=== PATIENT | female | born 1960 | race Caucasian/White ===

== ENCOUNTER 2017-10-21 12:44 | Emergency (ER) | payer MEDICAID, OTHER ==
[2017-10-21 12:54] VITALS: BP 138/79; PULSE 76; RESP 20; TEMP 98.1; O2SAT 98
--- NOTE | 2017-10-21 13:53 | ED PDOC ---
HPI: General Adult Time Seen by Provider: 10/21/17 13:23 Chief Complaint (Nursing): Abdominal Pain Additional Complaint(s): 57 y/o F c no PMHx p/w R sided abd pain x 6 days. Pain is RLQ, nonradiating, did not start elsewhere, feels worse when laying down. Denies fever, chills, nausea, vomiting, diarrhea, constipation, vaginal bleeding, dysuria, trauma. LMP 7 years ago. Past Medical History Vital Signs: Last Vital Signs Temp 98.1 F 10/21/17 12:53 Pulse 76 10/21/17 12:53 Resp 20 10/21/17 12:53 BP 138/79 10/21/17 12:53 Pulse Ox 98 10/21/17 13:53 - Family History Family History: States: Unknown Family Hx - Home Medications Home Medications: Ambulatory Orders Medication Instructions Recorded Prednisone 20 mg PO BID #10 tablet 09/04/15 Sulfamethoxazole/Trimethoprim 1 tab PO BID #14 tab 09/04/15 [Bactrim DS 800 mg-160 mg] Ibuprofen [Motrin] 1 tab PO Q6 #30 tab 10/21/17 Polyethylene Glycol 3350 [Miralax] 17 gm PO DAILY #238 gm 10/21/17 - Allergies Allergies/Adverse Reactions: Allergies Allergy/AdvReac Type Severity Reaction Status Date / Time aspirin Allergy RASH Verified 09/04/15 17:00 latex Allergy RASH Verified 10/21/17 12:53 seafood Allergy RASH Uncoded 10/21/17 12:53 Review of Systems ROS Statement: Except As Marked, All Systems Reviewed And Found Negative Constitutional: Negative for: Fever Gastrointestinal: Negative for: Vomiting Physical Exam - Physical Exam Comments: Gen: NAD Head: NC/AT Eyes: PERRL ENT: MMM Neck: Supple Chest: No tenderness CV: Regular rate Lungs: CTA b/l Abd: Soft, tenderness R suprapubic, no tenderness at McBurney's point, no guarding Back: No CVA tenderness Skin: No rash Neuro: Alert, no focal deficit Extremities: No edema - Laboratory Results Result Diagrams: 10/21/17 14:00 10/21/17 14:00 - ECG O2 Sat by Pulse Oximetry: 98 Medical Decision Making Medical Decision Making: Toradol and IVF for pain, check labs and US. FINDINGS: The uterus measures 4.5 x 3.2 x 3.3 centimeters. The endometrium measures 2 millimeters. Multiple fibroids are identified the largest measuring 1.5 centimeters in the anterior fundus. The ovaries have a normal sonographic appearance. There is no free from the pelvis. IMPRESSION: Scattered small leiomyomata. IMPRESSION: 1. The appendix is unremarkable. 2. There is trace free fluid in the pelvis, cannot exclude ovarian cyst rupture Patient feels better. Will discharge home, f/u PMD, return to ED for worsening pain, fever, vomiting, or any other problem. Disposition - Clinical Impression Clinical Impression: Abdominal pain - Patient ED Disposition Is Patient to be Admitted: No - Disposition Disposition: Routine/Home Disposition Time: 18:51 Condition: STABLE Prescriptions: Ibuprofen [Motrin] 1 tab PO Q6 #30 tab Polyethylene Glycol 3350 [Miralax] 17 gm PO DAILY #238 gm Instructions: Ovarian Cysts, Constipation in Adults Forms: [facility] ([place])
[2017-10-21 14:14] LABS: BASO % 1.1 % (0.0-2.0); EOS # 0.1 K/uL (0.0-0.7); EOS % 2.8 % (0.0-4.0); HEMOGLOBIN 12.4 g/dL (12.0-16.0); LYMPH # 1.8 K/uL (1.0-4.3); LYMPH % 42.8 % (20.0-40.0); MEAN CELL VOLUME 95.1 fl (81.0-99.0); MEAN CORPUSCULAR HEMOGLOBIN 31.9 pg (27.0-31.0); MEAN CORPUSCULAR HGB CONC 33.6 g/dL (33.0-37.0); MONO # 0.4 K/uL (0.0-0.8); MONO % 8.6 % (0.0-10.0); NEUT # 1.9 K/uL (1.8-7.0); NEUT % 44.7 % (50.0-75.0); NRBC % 0.1 % (0.0-0.0); RBC 3.88 Mil/uL (3.80-5.20); RED CELL DISTRIBUTION WIDTH 13.3 % (11.5-14.5); WHITE BLOOD COUNT 4.2 K/uL (4.8-10.8)
[2017-10-21 14:17] LABS: SQUAMOUS EPITHIAL < 1 /hpf (0-5); URINE BILIRUBIN NEGATIVE (NEGATIVE); URINE BLOOD NEGATIVE (NEGATIVE); URINE CLARITY CLEAR (Clear); URINE COLOR STRAW (YELLOW); URINE GLUCOSE (UA) NEG (Normal); URINE LEUKOCYTE ESTERASE NEG Leu/uL (Negative); URINE PROTEIN NEGATIVE (NEGATIVE); URINE UROBILINOGEN 0.2-1.0 mg/dL (0.2-1.0)
[2017-10-21 14:27] LABS: ALB/GLOB RATIO 1.3 (1.0-2.1); ALBUMIN 4.2 g/dL (3.5-5.0); ALT/SGPT 33 U/L (9-52); AST/SGOT 33 U/L (14-36); BLOOD UREA NITROGEN 16 mg/dl (7-17); CALCIUM 9.3 mg/dL (8.4-10.2); GFR AFRICAN-AMERICAN > 60; GFR NON-AFRICAN AMERICAN > 60; LIPASE 121 U/L (23-300)
[2017-10-21] MEDS: Sodium Chloride 0.9% 1,000 ML IV SCH ×4 (14:37→17:18)
[2017-10-21 15:41] LABS: HCG,QUALITATIVE URINE NEGATIVE (NEGATIVE)
--- NOTE | 2017-10-21 16:46 | US ---
PROCEDURE: HISTORY: R sided pain, r/o torsion/cyst COMPARISON: TECHNIQUE: FINDINGS: The uterus measures 4.5 x 3.2 x 3.3 centimeters. The endometrium measures 2 millimeters. Multiple fibroids are identified the largest measuring 1.5 centimeters in the anterior fundus. The ovaries have a normal sonographic appearance. There is no free from the pelvis. IMPRESSION: Scattered small leiomyomata.
[2017-10-21] MEDS ORDERED: Iohexol 300 100 ML IJ ONE (16:56)
[2017-10-21] MEDS ORDERED: Sodium Chloride 0.9% 100 ML ONE (16:57)
--- NOTE | 2017-10-22 08:26 | CT ---
PROCEDURE: CT Abdomen and Pelvis with contrast HISTORY: RLQ pain COMPARISON: None. TECHNIQUE: Following the intravenous administration of iodinated contrast material, a CT examination of the abdomen and pelvis performed from the domes of the diaphragms to the symphysis pubis with reformatted datasets provided not only axial but also sagittal and coronal planes. Oral contrast was not administered as per referring physician request. Contrast dose: Omnipaque 300, 98 cc Radiation dose: Total exam DLP = 515.48 mGy-cm. This CT exam was performed using one or more of the following dose reduction techniques: Automated exposure control, adjustment of the mA and/or kV according to patient size, and/or use of iterative reconstruction technique. FINDINGS: LOWER THORAX: Unremarkable. LIVER: A tiny hepatic granuloma seen near the dome laterally to the right with a tiny lucency at the right lobe liver inferolaterally in the periphery, too small to characterize. With the liver otherwise unremarkable appearing. GALLBLADDER AND BILE DUCTS: Gallbladder is contracted. No radiodense cholelithiasis appreciated in the lumen. PANCREAS: Unremarkable. No gross lesion or ductal dilatation. SPLEEN: Unremarkable. ADRENALS: Unremarkable. No mass. KIDNEYS AND URETERS: A small lucency seen the lower pole right kidney, too small to characterize. No hydronephrosis. No definite solid mass. VASCULATURE: Non aneurysmal atherosclerotic abdominal aorta is identified. BOWEL: Unremarkable. No obstruction. No gross mural thickening. APPENDIX: Normal appendix. PERITONEUM: Trace fluid is seen in the cul-de-sac posteriorly and slightly to the right. No free air. LYMPH NODES: Unremarkable. No enlarged lymph nodes. BLADDER: Unremarkable. REPRODUCTIVE: Unremarkable. BONES: No acute fracture. OTHER FINDINGS: None. IMPRESSION: 1. No CT evidence to suggest appendicitis with the appendix appearing normal at the right lower quadrant. No suspicious CT findings the right lower quadrant including the pelvis. 2. Tiny lucency seen the right lobe liver post inferolaterally, too small to characterize with an additional lucency seen at the lower pole right kidney too small to characterize. Tiny hepatic granuloma is identified. 3. Trace fluid seen the cul-de-sac and inferior right extent adnexal compartment of uncertain origin, possibly for reason right adnexal cyst rupture. No adnexal cystic changes are clearly identified at this time.
== END 2017-10-21 19:06 | disposition home or self-care (01) ==
LOC: H.ER 12:44
DX: R10.9 Unspecified abdominal pain (principal); D25.9 Leiomyoma of uterus, unspecified
CPT/HCPCS: 74177; 76830; 80053; 81003; 81025; 83690; 84703; 85025; 87086; 96374; 99283; J1885; J7040; Q9967

== ENCOUNTER 2018-12-05 08:06 | Emergency (ER) | payer MEDICAID ==
[2018-12-05 08:14] VITALS: O2SAT 98; BMI 25.9
--- NOTE | 2018-12-05 08:48 | ED PDOC ---
Lower Extremity Pain/Injury Time Seen by Provider: 12/05/18 08:33 Chief Complaint (Nursing): Lower Extremity Problem/Injury Chief Complaint (Provider): Lower Extremity Problem/Injury History Per: Patient History/Exam Limitations: no limitations Onset/Duration Of Symptoms: Days (x 2) Current Symptoms Are (Timing): Still Present Additional Complaint(s): 58 year old female with no significant medical history presents to the ED for evaluation of left knee pain. Patient reports she has been experiencing "soreness" on the inside of her left knee for about a week. She has tried homeopathic remedies and wrapping it with an [employer] bandage with some relief. However, yesterday she states that she heard a "cork like pop" sound and now has swelling, bruising and mild numbness to the area. She is able to walk on the left leg with assistance from a cane. Patient took 800 mg of Motrin every 8 hours for pain relief. Her last dose was last night. Denies radiation to other areas, trauma and other complaints. PMD: Dr. Binta Bal - Knee Alleviating Factor(s): OTC Pain Medication Past Medical History Reviewed: Historical Data, Nursing Documentation, Vital Signs Vital Signs: Last Vital Signs Temp 97 F L 12/05/18 08:13 Pulse 89 12/05/18 08:13 Resp 18 12/05/18 08:13 BP 124/74 12/05/18 08:13 Pulse Ox 98 12/05/18 08:13 Primary Care Provider: Non [facility] Provider, - Medical History PMH: No Chronic Diseases - Surgical History Surgical History: No Surg Hx - Family History Family History: States: Unknown Family Hx - Social History Alcohol: None Drugs: Denies - Home Medications Home Medications: Ambulatory Orders Medication Instructions Recorded Prednisone 20 mg PO BID #10 tablet 09/04/15 Sulfamethoxazole/Trimethoprim 1 tab PO BID #14 tab 09/04/15 [Bactrim DS 800 mg-160 mg] Ibuprofen [Motrin] 1 tab PO Q6 #30 tab 10/21/17 Polyethylene Glycol 3350 [Miralax] 17 gm PO DAILY #238 gm 10/21/17 Ibuprofen [Motrin Tab] 800 mg PO Q8 #30 tab 12/05/18 - Allergies Allergies/Adverse Reactions: Allergies Allergy/AdvReac Type Severity Reaction Status Date / Time aspirin Allergy RASH Verified 09/04/15 17:00 latex Allergy RASH Verified 10/21/17 12:53 seafood Allergy RASH Uncoded 10/21/17 12:53 Review of Systems ROS Statement: Except As Marked, All Systems Reviewed And Found Negative Musculoskeletal: Positive for: Leg Pain (left knee pain) Skin: Positive for: Bruising (inside of left knee), Other Physical Exam - Reviewed Nursing Documentation Reviewed: Yes Vital Signs Reviewed: Yes - Physical Exam Appears: Positive for: Non-toxic, No Acute Distress Head Exam: Positive for: ATRAUMATIC, NORMAL INSPECTION, NORMOCEPHALIC Skin: Positive for: Normal Color, Warm, Dry Cardiovascular/Chest: Positive for: Regular Rate, Rhythm Respiratory: Positive for: CNT, Normal Breath Sounds Extremity: Positive for: Swelling (to the medial left knee.). Negative for: Deformity, Other (Ivan's test limited due to pain; no palpable fluctuance, warmth, movement to posterior and anterior drawer test, palpable clicking) Neurological/Psych: Positive for: Awake, Alert, Normal Tone, Oriented (x 3). Negative for: Motor/Sensory Deficits - ECG O2 Sat by Pulse Oximetry: 98 (RA) Pulse Ox Interpretation: Normal Medical Decision Making Medical Decision Makin:42 MDM: most likely meniscus vs ligament Left knee x-ray Tylenol for pain 09:40 X-ray shows no bony abnormality. Patient given referral for orthopedic to follow up at first available opportunity. Discussed need for knee immobilizer and crutches. Patient prefers to use a cane but agreed to take crutches and immobilizer in case symptoms worsen. Patient given training for crutches and knee immobilizer was placed. Prescription for Motrin for pain. Return parameters discussed. Scribe Attestation: Documented by Rachel Eid, acting as a scribe for Echo Melgar MD. Provider Scribe Attestation: All medical record entries made by the Scribe were at my direction and personally dictated by me. I have reviewed the chart and agree that the record accurately reflects my personal performance of the history, physical exam, medical decision making, and the department course for this patient. I have also personally directed, reviewed, and agree with the discharge instructions and disposition. Disposition - Clinical Impression Clinical Impression: Knee injury, Knee pain - Patient ED Disposition Is Patient to be Admitted: No - Disposition Referrals: Morales Hastings III, MD [Staff Provider] - Disposition: Routine/Home Disposition Time: 09:40 Condition: IMPROVED Additional Instructions: Use crutches or cane as needed for walking. Take Motrin or Tylenol as needed for pain. Follow up with the orthopedic surgeon for further evaluation. Do not perform activities that have risk of fall or twisting of the knee. Prescriptions: Ibuprofen [Motrin Tab] 800 mg PO Q8 #30 tab Instructions: Knee Sprain (DC), Knee Pain (DC), Joint Pain Forms: [employer] (British) Print Language: SAO TOMEAN
--- NOTE | 2018-12-05 09:22 | RAD ---
Date of service: 12/05/2018 PROCEDURE: Left Knee Radiographs. HISTORY: Pain. COMPARISON: None. TECHNIQUE: 2 views obtained. FINDINGS: BONES: Normal. No fracture. JOINTS: Normal. No osteoarthritis. JOINT EFFUSION: None. OTHER FINDINGS: None. IMPRESSION: Normal radiographs of the left knee.
[2018-12-05 10:04] VITALS: BP 128/78; PULSE 79; RESP 20; TEMP 97.6
== END 2018-12-05 10:04 | disposition home or self-care (01) ==
LOC: H.ER 08:06
DX: M25.562 Pain in left knee (principal)